=== PATIENT | female | born 1960 | race Caucasian/White ===

== ENCOUNTER 2017-03-05 12:59 | Emergency (ER) | payer BC ==
[~2017-03-05] VITALS: Ht 170.2 cm; Wt 86.2 kg
[~2017-03-05 12:59] MED LIST: MULTI-VITAMIN1 EACH PO; MULTIVITAMIN; PANTOPRAZOLE SO40 MG PO; PREVACID30 M2 PO; Z.1.FISH OIL 1,2001 PO
[2017-03-05] MEDS ORDERED: ALBUTEROL SULF 0.083% NEB SOLN 3 ML NEB NEB STA (13:23)
[2017-03-05] MEDS ORDERED: IPRATROPIUM BROMIDE 0.02% 2.5 ML NEB NEB STA (13:23)
[2017-03-05] MEDS ORDERED: BENZONATATE 100 MG CAP PO PRN (13:30)
[2017-03-05] MEDS ORDERED: FAMOTIDINE 20 MG TAB PO ONE (13:30)
[2017-03-05] MEDS ORDERED: DEXAMETHASONE SOD PHOS 10 MG/1 ML VIAL IV ONE (13:30)
--- NOTE | 2017-03-05 17:19 | Diagnostic Imaging Report ---
PROCEDURE: Frontal and lateral views of the chest. COMPARISON: None. INDICATIONS: PNEUMONIA FINDINGS: Lines/tubes: None. Lungs: The lungs are well inflated. Very mild peribronchial cuffing. There is no evidence of pneumonia or pulmonary edema. Pleura: There is no pleural effusion or pneumothorax. Heart and mediastinum: The heart and the mediastinum are normal. Bones: No acute bony abnormality. Right upper quadrant cholecystectomy clips. Left upper quadrant surgical clips. IMPRESSION: Very mild peribronchial cuffing, which may represent mild reactive airway versus viral etiology. Dictated by: Zain Ac M.D. on 03/05/2017 at 17:28 Electronically approved by: Zain Ac M.D. on 03/05/2017 at 17:28
== END 2017-03-05 14:40 | disposition home or self-care (01) ==
LOC: ER 12:59
DX: T78.40XA Allergy, unspecified, initial encounter (principal); L50.9 Urticaria, unspecified; R05 Cough
CPT/HCPCS: 71020; 99283; J1100

== ENCOUNTER → 2018-07-10 | Day surgery (SDC) | payer BC ==
[2018-07-09 13:39] LABS: BASOPHILS % 0.5 % (0.0-1.0); EOSINOPHILS # (AUTO) 0.3 (0.0-0.4); HEMATOCRIT 39.1 % (34.2-44.1); HEMOGLOBIN 13.7 g/dL (12.0-16.0); LYMPHOCYTES # (AUTO) 2.3 (1.0-3.2); LYMPHOCYTES % 29.1 % (18.0-39.1); MEAN CORPUSCULAR HEMOGLOBIN 31.4 pg (28-32); MEAN CORPUSCULAR VOLUME 89.7 fL (81-99); MONOCYTES # (AUTO) 0.5 (0.2-0.8); MONOCYTES % 6.2 % (4.4-11.3); NEUTROPHILS # (AUTO) 4.6 (2.1-6.9); NEUTROPHILS % 59.7 % (38.7-80.0); PLATELET COUNT 269 x10e3/uL (140-360); RED BLOOD COUNT 4.36 x10e6/uL (3.6-5.1); RED CELL DISTRIBUTION WIDTH 12.2 % (11.7-14.4)
[2018-07-09 14:01] LABS: ANION GAP 11.8 mmol/L (8-16); BLOOD UREA NITROGEN 8 mg/dL (7-26); BUN/CREATININE RATIO 11 (6-25); CARBON DIOXIDE 26 mmol/L (22-29); CHLORIDE 105 mmol/L (98-107); CREATININE, SERUM 0.74 mg/dL (0.57-1.11); EST GLOMERULAR FILTRATION RATE > 60 ML/MIN (60-); GLUCOSE 93 mg/dL (74-118); POTASSIUM 3.8 mmol/L (3.5-5.1); SODIUM 139 mmol/L (136-145)
[~2018-07-10] MED LIST changes: +FENTANYL CITRATE/PF 100MCG/2 ML INJ ONE; +LIDOCAINE HCL 2% LOCAL INJ 5 ML SDV VIAL INJ ONE; +MIDAZOLAM HCL 2 MG/2 ML VIAL ONE; +PLAVIX75 MG PO; +PROPOFOL IV EMULSION 10 MG/ML 50 ML VIAL ONE
--- OUTSIDE RECORDS SUMMARY | 2018-07-10 06:17 | XMS REPORT ---
[facility] Address Unknown Phone Unavailable Care Team Providers Care Income Tax Analyst Name Role Phone Zahida COTTER Unavailable Unavailable Problems This patient has no known problems. Allergies, Adverse Reactions, Alerts This patient has no known allergies or adverse reactions. Medications This patient has no known medications. Results Test Description Test Time Test Comments Text Results Atomic Results Result Comments CHEST 2 VIEWS [place] [address] Patient Name: CLARENCE HALEY MR #: [id number] : 1960 Age/Sex: 56/F Req #: [id number] Adm Physician: Ordered by: NAI WOOD MANAGER [employer] Report #: [id number] Location: ER Room/Bed: Procedure: [id number] DX/CHEST 2 VIEWS Exam Date: 03/05/17 Exam Time: 1330 REPORT STATUS: Signed PROCEDURE: Frontal and lateral views of the chest. COMPARISON: None. INDICATIONS: PNEUMONIA FINDINGS: Lines/tubes: None. Lungs: The lungs are well inflated. Very mild peribronchial cuffing. There is no evidence of pneumonia or pulmonary edema. Pleura: There is no pleural effusion or pneumothorax. Heart and mediastinum: The heart and the mediastinum are normal. Bones: No acute bony abnormality. Right upper quadrant cholecystectomy clips. Left upper quadrant surgical clips. IMPRESSION: Very mild peribronchial cuffing, which may represent mild reactive airway versus viral etiology. Dictated by: Savanah Ac M.D. on 03/05/2017 at 17:28 Electronically approved by: Savanah Ac M.D. on 03/05/2017 at 17:28 Dictated By: SAVANAH AC MD 28 Transcribed By: BRITTNEY on 03/05/171728 COPY TO: NAI WOOD NP
[2018-07-10 09:10] VITALS: BP 120/74
== END | disposition home or self-care (01) ==
LOC: OR 06:12
PROVIDERS: ATTEND Surgery
DX: K22.2 Esophageal obstruction (principal); C16.0 Malignant neoplasm of cardia; K25.9 Gastric ulcer, unspecified as acute or chronic, without hemorrhage or perforation; K21.0 Gastro-esophageal reflux disease with esophagitis; K22.70 Barrett's esophagus without dysplasia; Z88.1 Allergy status to other antibiotic agents; Z88.0 Allergy status to penicillin; Z01.810 Encounter for preprocedural cardiovascular examination; Z98.890 Other specified postprocedural states; Z87.891 Personal history of nicotine dependence
CPT/HCPCS: 36415; 43239; 43249; 80048; 85025; 88305; 88312; 93005; J2001; J2250; J2704; 43450

== ENCOUNTER 2018-09-06 18:20 | Emergency (ER) | payer BC ==
[~2018-09-06] VITALS: Ht 170.2 cm; Wt 86.2 kg
[~2018-09-06 18:20] MED LIST changes: -FENTANYL CITRATE/PF 100MCG/2 ML INJ ONE; -LIDOCAINE HCL 2% LOCAL INJ 5 ML SDV VIAL INJ ONE; -MIDAZOLAM HCL 2 MG/2 ML VIAL ONE; -PROPOFOL IV EMULSION 10 MG/ML 50 ML VIAL ONE
--- OUTSIDE RECORDS SUMMARY | 2018-09-06 18:23 | XMS REPORT | Clinical Summary ---
Author Author [facility] Address Unknown Phone Unavailable Care Team Providers Care Registered Physical Therapist Name Role Phone Jasper Mast Unavailable Allergies Comments Active Allergy Reactions Severity Noted Date welps Ciprofloxacin Swelling, 07/28/2018 Other (See Comments) welps Penicillins Swelling, 07/28/2018 Other (See Comments) Medications End Date Status Medication Sig Dispensed Refills Start Date Active pantoprazole (PROTONIX) Take 20 mg by 0 20 MG tablet mouth daily. 09/10/2018 Active acetaminophen 650 mg/20.3 20.3 mLs (650 812 mL 0 mL Soln mg total) by 9 Feed Tube route every 6 (six) hours for 10 days. 09/10/2018 Active gabapentin (NEURONTIN) Take 2 mLs 60 mL 0 250 mg/5 mL solution (100 mg 9 total) by mouth every 8 (eight) hours for 10 days. 09/30/2018 Active lidocaine (LIDODERM) 5 % Place 1 patch 30 patch 0 patch onto the skin 9 daily for 30 days Remove & Discard patch within 12 hours or as directed by . 09/10/2018 Active traMADol (ULTRAM) 50 mg Take 1 tablet 30 tablet 0 tablet (50 mg total) 9 by mouth every 6 (six) hours as needed for up to 10 days. Max Daily Amount: 200 mg Active Problems Problem Noted Date Esophageal adenoca s/p FB, EGD with pyloric balloon dil, robotic take down 08/25/2018 of prior fundoplication, Juventino Marcus esophagectomy (laparoscopic, thoracoscopic), feeding J tube 08/25/18 Encounters Care Team Description Date Type Specialty Jason Prado MD ROBOTIC LAPAROSCOPY,ESOPHAGECTOMY 08/25/2018 Surgery Jorden Lowe, AA 08/25/2018 Anesthesia Event Jason Prado MD Esophageal adenocarcinoma (HCC); Acute respiratory insufficiency, postoperative 08/25/2018 Hospital Intensive Care - Encounter 08/31/2018 Jason Prado MD 08/21/2018 Hospital Encounter Jason Prado MD 08/21/2018 Hospital Cardiology Encounter Jason Prado MD 08/21/2018 Hospital Pre-Admission Testing Encounter 08/21/2018 Orders Only General Internal Medicine Link, Wilfredo Hagen MD 08/21/2018 Outside Orders Resource, [facility] Phone 08/11/2018 Hospital Pre-Admission Testing Encounter Jackelin Larsen CRNA 08/01/2018 Anesthesia Event Tony Pickard MD UPPER ENDOSCOPY,FNA W/ULTRASOUND 08/01/2018 Surgery Tony Pickard MD 08/01/2018 Hospital Encounter Resource, [facility] Phone 07/28/2018 Hospital Pre-Admission Testing Encounter after 09/05/2017 Social History Date Tobacco Use Types Packs/Day Years Used Quit: 2000 Former Smoker 0.1 15 Smokeless Tobacco: Never Used Alcohol Use Drinks/Week oz/Week Comments Yes rarely Alcohol Habits Answer Date Recorded How often do you have a drink containing alcohol? Never 08/01/2018 How many drinks containing alcohol do you have on Not asked a typical day when you are drinking? How often do you have six or more drinks on one Not asked occasion? Sex Assigned at Date Recorded Not on file Industry Job Start Date Occupation Not on file Not on file Not on file Travel End Travel History Travel Start No recent travel history available. Last Filed Vital Signs Time Taken Vital Sign Reading 08/31/2018 10:41 AM CDT Blood Pressure 117/74 08/31/2018 10:41 AM CDT Pulse 94 08/31/2018 8:45 AM CDT Temperature 36.4 C (97.6 F) 08/31/2018 10:41 AM CDT Respiratory Rate 23 08/31/2018 10:41 AM CDT Oxygen Saturation 98% 08/29/2018 12:00 AM CDT Inhaled Oxygen 2% Concentration 08/31/2018 6:00 AM CDT Weight 65.6 kg (144 lb 10 oz) 08/25/2018 5:50 AM CDT Height 170.2 cm (5' 7") 08/31/2018 6:00 AM CDT Body Mass Index 22.65 Plan of Treatment Not on file Procedures Comments Procedure Name Priority Date/Time Associated Diagnosis RHYTHM STRIP - SCAN 09/01/2018 1:30 PM CDT POCT-GLUCOSE METER Routine 08/31/2018 5:49 AM CDT CBC W/PLT COUNT & AUTO Routine 08/31/2018 DIFFERENTIAL 4:41 AM CDT PHOSPHORUS Routine 08/31/2018 4:41 AM CDT MAGNESIUM Routine 08/31/2018 4:41 AM CDT CBC W/PLT COUNT & AUTO Routine 08/31/2018 DIFFERENTIAL 4:41 AM CDT BASIC METABOLIC PANEL (7) Routine 08/31/2018 4:41 AM CDT XR CHEST 1 VIEW Routine 08/31/2018 PORTABLE/BEDSIDE 3:45 AM CDT POCT-GLUCOSE METER Routine 08/31/2018 12:02 AM CDT POCT-GLUCOSE METER Routine 08/30/2018 5:35 PM CDT POCT-GLUCOSE METER Routine 08/30/2018 11:33 AM CDT POCT-GLUCOSE METER Routine 08/30/2018 5:52 AM CDT CBC W/PLT COUNT & AUTO Routine 08/30/2018 DIFFERENTIAL 4:38 AM CDT PHOSPHORUS Routine 08/30/2018 4:38 AM CDT MAGNESIUM Routine 08/30/2018 4:38 AM CDT CBC W/PLT COUNT & AUTO Routine 08/30/2018 DIFFERENTIAL 4:38 AM CDT BASIC METABOLIC PANEL (7) Routine 08/30/2018 4:38 AM CDT XR CHEST 1 VIEW Routine 08/30/2018 PORTABLE/BEDSIDE 3:04 AM CDT POCT-GLUCOSE METER Routine 08/29/2018 11:54 PM CDT POCT-GLUCOSE METER Routine 08/29/2018 1:00 PM CDT FL ESOPHAGUS PHARNYX Routine 08/29/2018 AND/OR CERVICAL 10:53 AM CDT POCT-GLUCOSE METER Routine 08/29/2018 6:06 AM CDT CBC W/PLT COUNT & AUTO Routine 08/29/2018 DIFFERENTIAL 4:57 AM CDT PHOSPHORUS Routine 08/29/2018 4:57 AM CDT MAGNESIUM Routine 08/29/2018 4:57 AM CDT CBC W/PLT COUNT & AUTO Routine 08/29/2018 DIFFERENTIAL 4:57 AM CDT BASIC METABOLIC PANEL (7) Routine 08/29/2018 4:57 AM CDT XR CHEST 1 VIEW Routine 08/29/2018 PORTABLE/BEDSIDE 3:17 AM CDT POCT-GLUCOSE METER Routine 08/28/2018 11:03 PM CDT POCT-GLUCOSE METER Routine 08/28/2018 5:56 PM CDT INTRAOPERATIVE PATH 08/28/2018 REPORT - SCAN 3:01 PM CDT PHOSPHORUS Routine 08/28/2018 12:46 PM CDT POCT-GLUCOSE METER Routine 08/28/2018 12:10 PM CDT XR CHEST 1 VIEW Routine 08/28/2018 PORTABLE/BEDSIDE 12:06 PM CDT CBC W/PLT COUNT & AUTO Routine 08/28/2018 DIFFERENTIAL 2:47 AM CDT PHOSPHORUS Routine 08/28/2018 2:47 AM CDT MAGNESIUM Routine 08/28/2018 2:47 AM CDT CBC W/PLT COUNT & AUTO Routine 08/28/2018 DIFFERENTIAL 2:47 AM CDT BASIC METABOLIC PANEL (7) Routine 08/28/2018 2:47 AM CDT XR CHEST 1 VIEW Routine 08/28/2018 PORTABLE/BEDSIDE 2:46 AM CDT POCT-GLUCOSE METER Routine 08/28/2018 12:06 AM CDT POCT-GLUCOSE METER Routine 08/27/2018 5:58 PM CDT POCT-GLUCOSE METER Routine 08/27/2018 12:10 PM CDT POCT-GLUCOSE METER Routine 08/27/2018 6:40 AM CDT XR CHEST 1 VIEW Routine 08/27/2018 PORTABLE/BEDSIDE 5:48 AM CDT CBC W/PLT COUNT & AUTO Routine 08/27/2018 DIFFERENTIAL 5:23 AM CDT CBC W/PLT COUNT & AUTO Routine 08/27/2018 DIFFERENTIAL 5:23 AM CDT PHOSPHORUS Routine 08/27/2018 5:23 AM CDT MAGNESIUM Routine 08/27/2018 5:23 AM CDT BASIC METABOLIC PANEL (7) Routine 08/27/2018 5:23 AM CDT MAGNESIUM Routine 08/27/2018 12:06 AM CDT POTASSIUM Routine 08/27/2018 12:06 AM CDT POCT-GLUCOSE METER Routine 08/26/2018 11:03 PM CDT TRANSFUSION SERVICE 08/26/2018 REPORT - SCAN 6:02 PM CDT POCT-GLUCOSE METER Routine 08/26/2018 5:27 PM CDT CBC W/PLT COUNT & AUTO Routine 08/26/2018 DIFFERENTIAL 4:21 PM CDT CBC W/PLT COUNT & AUTO Routine 08/26/2018 DIFFERENTIAL 4:21 PM CDT PHOSPHORUS Routine 08/26/2018 4:21 PM CDT MAGNESIUM Routine 08/26/2018 4:21 PM CDT BASIC METABOLIC PANEL (7) Routine 08/26/2018 4:21 PM CDT BLOOD GAS, ARTERIAL Routine 08/26/2018 4:21 PM CDT POCT-GLUCOSE METER Routine 08/26/2018 11:27 AM CDT XR CHEST 1 VIEW Routine 08/26/2018 PORTABLE/BEDSIDE 4:30 AM CDT CBC W/PLT COUNT & AUTO Routine 08/26/2018 DIFFERENTIAL 3:10 AM CDT CBC W/PLT COUNT & AUTO Routine 08/26/2018 DIFFERENTIAL 3:10 AM CDT PHOSPHORUS Routine 08/26/2018 3:10 AM CDT MAGNESIUM Routine 08/26/2018 3:10 AM CDT BASIC METABOLIC PANEL (7) Routine 08/26/2018 3:10 AM CDT BLOOD GAS, ARTERIAL Routine 08/26/2018 3:10 AM CDT XR CHEST 1 VIEW STAT 08/25/2018 PORTABLE/BEDSIDE 9:45 PM CDT BLOOD GAS, ARTERIAL Routine 08/25/2018 9:08 PM CDT CBC W/PLT COUNT & AUTO Routine 08/25/2018 DIFFERENTIAL 9:07 PM CDT APTT Routine 08/25/2018 9:07 PM CDT PROTHROMBIN TIME/INR Routine 08/25/2018 9:07 PM CDT CBC W/PLT COUNT & AUTO Routine 08/25/2018 DIFFERENTIAL 9:07 PM CDT CALCIUM, IONIZED Routine 08/25/2018 9:07 PM CDT PHOSPHORUS Routine 08/25/2018 9:07 PM CDT MAGNESIUM Routine 08/25/2018 9:07 PM CDT COMPREHENSIVE METABOLIC Routine 08/25/2018 PANEL 9:07 PM CDT HGB/HCT (H&H) - STAT LAB STAT 08/25/2018 7:25 PM CDT GLUCOSE-STAT LAB STAT 08/25/2018 7:25 PM CDT POTASSIUM-STAT LAB STAT 08/25/2018 7:25 PM CDT SODIUM NA-STAT LAB STAT 08/25/2018 7:25 PM CDT BLOOD GAS, ARTERIAL STAT 08/25/2018 7:25 PM CDT CALCIUM, IONIZED STAT 08/25/2018 7:25 PM CDT RRL CRITICAL LABS STAT 08/25/2018 (ABG,NA,K,H&H,GLUCOSE) 7:25 PM CDT HGB/HCT (H&H) - STAT LAB STAT 08/25/2018 6:14 PM CDT GLUCOSE-STAT LAB STAT 08/25/2018 6:14 PM CDT POTASSIUM-STAT LAB STAT 08/25/2018 6:14 PM CDT SODIUM NA-STAT LAB STAT 08/25/2018 6:14 PM CDT BLOOD GAS, ARTERIAL STAT 08/25/2018 6:14 PM CDT CALCIUM, IONIZED STAT 08/25/2018 6:14 PM CDT RRL CRITICAL LABS STAT 08/25/2018 (ABG,NA,K,H&H,GLUCOSE) 6:14 PM CDT HGB/HCT (H&H) - STAT LAB STAT 08/25/2018 5:07 PM CDT GLUCOSE-STAT LAB STAT 08/25/2018 5:07 PM CDT POTASSIUM-STAT LAB STAT 08/25/2018 5:07 PM CDT SODIUM NA-STAT LAB STAT 08/25/2018 5:07 PM CDT BLOOD GAS, ARTERIAL STAT 08/25/2018 5:07 PM CDT CALCIUM, IONIZED STAT 08/25/2018 5:07 PM CDT RRL CRITICAL LABS STAT 08/25/2018 (ABG,NA,K,H&H,GLUCOSE) 5:07 PM CDT HGB/HCT (H&H) - STAT LAB STAT 08/25/2018 3:01 PM CDT GLUCOSE-STAT LAB STAT 08/25/2018 3:01 PM CDT POTASSIUM-STAT LAB STAT 08/25/2018 3:01 PM CDT SODIUM NA-STAT LAB STAT 08/25/2018 3:01 PM CDT BLOOD GAS, ARTERIAL STAT 08/25/2018 3:01 PM CDT CALCIUM, IONIZED STAT 08/25/2018 3:01 PM CDT RRL CRITICAL LABS STAT 08/25/2018 (ABG,NA,K,H&H,GLUCOSE) 3:01 PM CDT HGB/HCT (H&H) - STAT LAB STAT 08/25/2018 12:58 PM CDT GLUCOSE-STAT LAB STAT 08/25/2018 12:58 PM CDT POTASSIUM-STAT LAB STAT 08/25/2018 12:58 PM CDT SODIUM NA-STAT LAB STAT 08/25/2018 12:58 PM CDT BLOOD GAS, ARTERIAL STAT 08/25/2018 12:58 PM CDT CALCIUM, IONIZED STAT 08/25/2018 12:58 PM CDT RRL CRITICAL LABS STAT 08/25/2018 (ABG,NA,K,H&H,GLUCOSE) 12:58 PM CDT TISSUE EXAM AP Routine 08/25/2018 10:58 AM CDT HGB/HCT (H&H) - STAT LAB STAT 08/25/2018 10:58 AM CDT GLUCOSE-STAT LAB STAT 08/25/2018 10:58 AM CDT POTASSIUM-STAT LAB STAT 08/25/2018 10:58 AM CDT SODIUM NA-STAT LAB STAT 08/25/2018 10:58 AM CDT BLOOD GAS, ARTERIAL STAT 08/25/2018 10:58 AM CDT RRL CRITICAL LABS STAT 08/25/2018 (ABG,NA,K,H&H,GLUCOSE) 10:58 AM CDT HGB/HCT (H&H) - STAT LAB STAT 08/25/2018 9:17 AM CDT GLUCOSE-STAT LAB STAT 08/25/2018 9:17 AM CDT POTASSIUM-STAT LAB STAT 08/25/2018 9:17 AM CDT SODIUM NA-STAT LAB STAT 08/25/2018 9:17 AM CDT BLOOD GAS, ARTERIAL STAT 08/25/2018 9:17 AM CDT CALCIUM, IONIZED STAT 08/25/2018 9:17 AM CDT RRL CRITICAL LABS STAT 08/25/2018 (ABG,NA,K,H&H,GLUCOSE) 9:17 AM CDT PROCEDURE W/ DAVINCI XI 08/25/2018 Malignant neoplasm of 8:00 AM CDT esophagus, unspecified location (HCC) Case Notes 6 HRS Special Needs (DAVINCI XI) INSERTION,JEJUNOSTOMY 08/25/2018 Malignant neoplasm of TUBE-LAPAROSCOPIC 8:00 AM CDT esophagus, unspecified location (HCC) Case Notes 6 HRS Special Needs (DAVINCI XI) FLAP,OMENTAL 08/25/2018 Malignant neoplasm of INTRA-ABDOMINAL 8:00 AM CDT esophagus, unspecified location (HCC) Case Notes 6 HRS Special Needs (DAVINCI XI) ESOPHAGOGASTRODUODENOSCOP 08/25/2018 Malignant neoplasm of Y (EGD) 8:00 AM CDT esophagus, unspecified location (HCC) Case Notes 6 HRS Special Needs (DAVINCI XI) BRONCHOSCOPY 08/25/2018 Malignant neoplasm of 8:00 AM CDT esophagus, unspecified location (HCC) Case Notes 6 HRS Special Needs (DAVINCI XI) ROBOTIC 08/25/2018 Malignant neoplasm of LAPAROSCOPY,ESOPHAGECTOMY 8:00 AM CDT esophagus, unspecified location (HCC) Case Notes 6 HRS Special Needs (DAVINCI XI) ABORH, MANUAL STAT 08/25/2018 6:38 AM CDT POCT-GLUCOSE METER Routine 08/25/2018 5:53 AM CDT TRANSFUSION SERVICE 08/22/2018 REPORT - SCAN 6:02 PM CDT XR CHEST 2 VIEWS Routine 08/21/2018 12:41 PM CDT ECG 12-LEAD Routine 08/21/2018 12:19 PM CDT Procedure Note - Interface, External Ris In - 08/21/2018 2:46 PM CDT Ventricula r Rate 60 BPM Atrial Rate 60 BPM P-R Interval 176 ms QRS Duration 70 ms Q-T Interval 400 ms QTC Calculatio n(Bazett) 400 ms P [place] 23 degrees R [place] 30 degrees T [place] 47 degrees Normal sinus rhythm Normal ECG No previous ECGs available ECG 12-LEAD Routine 08/21/2018 12:19 PM CDT CBC W/PLT COUNT & AUTO Routine 08/21/2018 DIFFERENTIAL 12:15 PM CDT PT/APTT Routine 08/21/2018 12:15 PM CDT COMPREHENSIVE METABOLIC Routine 08/21/2018 PANEL 12:15 PM CDT CBC W/PLT COUNT & AUTO Routine 08/21/2018 DIFFERENTIAL 12:15 PM CDT TYPE AND SCREEN, Routine 08/21/2018 AUTOMATED 12:14 PM CDT REPORT OF PROCEDURE - 08/01/2018 ENDOSCOPY URL 3:38 PM CDT UPPER ENDOSCOPY,FNA 08/01/2018 Malignant neoplasm of W/ULTRASOUND 2:30 PM CDT esophagus, unspecified location (HCC) Special Needs (LINEAR SCOPE) after 09/05/2017 Results * RHYTHM STRIP - SCAN (09/01/2018 1:30 PM CDT) Narrative Performed At * POC-Glucose meter (08/31/2018 5:49 AM CDT) Only the most recent of 19 results within the time period is included. POC-Glucose Meter 142 (H)Comment: TESTED AT 70 - 110 mg/dL [facility] [id number] [facility] [id number] Specimen Blood Performing Organization Address City/State/Zipcode Phone Number [place] [phone] [place] [address] [facility] * CBC with platelet count + automated diff (08/31/2018 4:41 AM CDT) Only the most recent of 9 results within the time period is included. WBC 4.9 3.5 - 10.5 K/L [facility] RBC 3.15 (L) 3.93 - 5.22 M/L [facility] Hemoglobin 9.6 (L) 11.2 - 15.7 GM/DL [facility] Hematocrit 29.2 (L) 34.1 - 44.9 % [facility] MCV 92.7 79.4 - 94.8 fL [facility] MCH 30.5 25.6 - 32.2 pg [facility] MCHC 32.9 32.2 - 35.5 GM/DL [facility] RDW 12.4 11.7 - 14.4 % [facility] Platelets 287 150 - 450 K/CU MM [facility] MPV 9.6 9.4 - 12.3 fL [facility] nRBC 0 0 - 0 /100 WBC [facility] % Neutros 55 % [facility] % Lymphs 29 % [facility] % Monos 9 % [facility] % Eos 6 % [facility] % Baso 1 % [facility] # Neutros 2.70 1.56 - 6.13 K/L [facility] # Lymphs 1.43 1.18 - 3.74 K/L [facility] # Monos 0.45 (H) 0.24 - 0.36 K/L [facility] # Eos 0.28 0.04 - 0.36 K/L [facility] # Baso 0.03 0.01 - 0.08 K/L [facility] Immature 1 0 - 1 % [facility] Granulocytes-Relative [facility] Specimen Blood Performing Organization Address City/State/Zipcode Phone Number [facility] [phone] [place] [address] [facility] * Phosphorus (08/31/2018 4:41 AM CDT) Only the most recent of 9 results within the time period is included. Phosphorus 2.8 2.3 - 4.7 mg/dL [facility] Specimen Blood Performing Organization Address City/[facility]/Zipcode Phone Number [address] [address] [facility] * Magnesium (08/31/2018 4:41 AM CDT) Only the most recent of 9 results within the time period is included. Magnesium 1.9 1.6 - 2.6 mg/dL [facility] Specimen Blood Performing Organization Address [facility] Phone Number [place] [phone] [place] [address] [facility] * Basic Metabolic Panel (08/31/2018 4:41 AM CDT) Only the most recent of 7 results within the time period is included. Sodium 140 136 - 145 meq/L [facility] Potassium 4.2 3.5 - 5.1 meq/L [facility] Chloride 109 (H) 98 - 107 meq/L [facility] CO2 26 22 - 29 meq/L [facility] BUN 11 7 - 21 mg/dL [facility] Creatinine 0.49 (L) 0.57 - 1.25 mg/dL [facility] Glucose 112 (H) 70 - 105 mg/dL [facility] Calcium 9.0 8.4 - 10.2 mg/dL [facility] EGFR 130Comment: ESTIMATED GFR IS mL/min/1.73 sq m [facility] NOT ACCURATE CREATININE [facility] CLEARANCE IN PREDICTING GLOMERULAR FILTRATION RATE. ESTIMATED GFR IS NOT APPLICABLE FOR DIALYSIS PATIENTS. Specimen Blood Performing Organization Address City/[facility]/Zipcode Phone Number [place] [phone] [place] [address] [facility] * XR chest 1 view portable / bedside (08/31/2018 3:45 AM CDT) Only the most recent of 8 results within the time period is included. Specimen Narrative Performed At FINAL REPORT [facility] RAD, CHEST, 1 VIEW, NON DEPT INDICATION: post op esophagectomy COMPARISON: Prior day's exam FINDINGS: Portable frontal view of the chest. IMPRESSION: Support Lines: Interval removal of the previously seen right IJ Montgomery-Maria Alejandra catheter. Lungs and pleura: Unchanged airspace and pleural opacities. Previously seen lucency under the right hemidiaphragm is no longer identified on the current examination. No definite pneumothorax is identified. Heart and mediastinum: Stable contours. Stable surgical changes. Additional findings: Subcutaneous emphysema over the bilateral neck and chest wall. Signed: Radha Ramos MD Report Verified Date/Time:08/31/2018 06:56:48 Procedure Note Interface, External Ris In - 08/31/2018 6:58 AM CDT FINAL REPORT RAD, CHEST, 1 VIEW, NON DEPT INDICATION: post op esophagectomy COMPARISON: Prior day's exam FINDINGS: Portable frontal view of the chest. IMPRESSION: Support Lines: Interval removal of the previously seen right IJ Montgomery-Maria Alejandra catheter. Lungs and pleura: Unchanged airspace and pleural opacities. Previously seen lucency under the right hemidiaphragm is no longer identified on the current examination. No definite pneumothorax is identified. Heart and mediastinum: Stable contours. Stable surgical changes. Additional findings: Subcutaneous emphysema over the bilateral neck and chest wall. Signed: Radha Ramos MD Report Verified Date/Time: 08/31/2018 06:56:48 Performing Organization Address City/State/Zipcode Phone Number [facility] * FL esophagus (08/29/2018 10:53 AM CDT) Specimen Narrative Performed At FINAL REPORT [facility] Gastrografin esophagogram Clinical History: s/p esophagectomy, please evaluate for leak or obstruction Discussion: Gastrografin is given to the patient to drink, without difficulties. Patient is status post esophagectomy and gastric pull-through. There is no contrast extravasation. Fluoro time:0.55 minutes Number of images obtained: 8 Impression: No contrast extravasation. Signed: Lauro Ornelas MD Report Verified Date/Time:08/29/2018 17:05:55 Reading Location: [address] Ortho Consult Reading Room Procedure Note Interface, External Ris In - 08/29/2018 5:08 PM CDT FINAL REPORT Gastrografin esophagogram Clinical History: s/p esophagectomy, please evaluate for leak or obstruction Discussion: Gastrografin is given to the patient to drink, without difficulties. Patient is status post esophagectomy and gastric pull-through. There is no contrast extravasation. Fluoro time: 0.55 minutes Number of images obtained: 8 Impression: No contrast extravasation. Signed: Lauro Ornelas MD Report Verified Date/Time: 08/29/2018 17:05:55 Reading Location: [address] Ortho Consult Reading Room Performing Organization Address City/State/Zipcode Phone Number [facility] * INTRAOPERATIVE PATH REPORT - SCAN (08/28/2018 3:01 PM CDT) Narrative Performed At * Potassium (08/27/2018 12:06 AM CDT) Potassium 3.8 3.5 - 5.1 meq/L [facility] Specimen Blood Narrative Performed At Check Serum Potassium level 2 hours after oral potassium replacement completed [facility] or 30 min after intravenous potassium replacement. [facility] Performing Organization Address City/State/Zipcode Phone Number [place] [phone] [place] [address] [facility] * TRANSFUSION SERVICE REPORT - SCAN (08/26/2018 6:02 PM CDT) Only the most recent of 2 results within the time period is included. Narrative Performed At * Blood gas, arterial (08/26/2018 4:21 PM CDT) Only the most recent of 10 results within the time period is included. pH, Arterial 7.38 7.35 - 7.45 [facility] pCO2, Arterial 44 35 - 45 mmHg [facility] pO2, Arterial 117 (H) 80 - 90 mmHg [facility] O2 Sat, Arterial 98.2 (H) 96.0 - 97.0 % [facility] HCO3, Arterial 26 21 - 29 mmol/L [facility] Base Excess, Arterial 0.2 -2.0 - 3.0 mmol/L [facility] Patient Temperature 36.5 C [facility] FIO2 60.0 % [facility] Specimen Blood, Arterial Performing Organization Address City/[facility] Phone Number [facility] [address] [place] [address] [facility] * Calcium, Ionized (08/25/2018 9:07 PM CDT) Only the most recent of 7 results within the time period is included. Calcium, Ion 1.17 1.12 - 1.27 mmol/L [facility] pH, Blood 7.32 [facility] Specimen Blood Performing Organization Address City/[facility] Phone Number [facility] [phone] [place] [address] [facility] * aPTT (08/25/2018 9:07 PM CDT) PTT 29.2 22.5 - 36.0 seconds [facility] Specimen Blood Performing Organization Address City/State/Zipcode Phone Number [facility] [address] [place] [address] [facility] * Prothrombin time/INR (08/25/2018 9:07 PM CDT) Protime 14.5 (H) 11.9 - 14.2 seconds [facility] INR 1.2 <=5.9 [facility] Specimen Blood Narrative Performed At Effective 07/09/2018: PT Reference Range Change [facility] New: 11.9-14.2Previous: 11.7-14.7 [facility] RECOMMENDED COUMADIN/WARFARIN INR THERAPY RANGES STANDARD DOSE: 2.0-3.0Includes: PROPHYLAXIS for venous thrombosis, systemic embolization; TREATMENT for venous thrombosis and/or pulmonary embolus. HIGH RISK: Target INR is 2.5-3.5 for patients wiht mechanical heart valves. Performing Organization Address City/State/Zipcode Phone Number [facility] [phone] [place] [address] [facility] * Comprehensive metabolic panel (08/25/2018 9:07 PM CDT) Only the most recent of 2 results within the time period is included. Protein, Total 5.8 (L) 6.0 - 8.3 gm/dL [facility] Albumin 3.7 3.5 - 5.0 g/dL [facility] Alkaline Phosphatase 46 40 - 150 U/L [facility] Total Bilirubin 0.7 0.2 - 1.2 mg/dL [facility] Sodium 137 136 - 145 meq/L [facility] Potassium 3.7 3.5 - 5.1 meq/L [facility] Chloride 106 98 - 107 meq/L [facility] CO2 23 22 - 29 meq/L [facility] BUN 5 (L) 7 - 21 mg/dL [facility] Creatinine 0.66 0.57 - 1.25 mg/dL [facility] Glucose 192 (H) 70 - 105 mg/dL [facility] Calcium 8.6 8.4 - 10.2 mg/dL [facility] AST 71 (H) 5 - 34 U/L [facility] ALT 72 (H) 6 - 55 U/L [facility] EGFR 92Comment: ESTIMATED GFR IS mL/min/1.73 sq m [facility] NOT ACCURATE CREATININE [facility] CLEARANCE IN PREDICTING GLOMERULAR FILTRATION RATE. ESTIMATED GFR IS NOT APPLICABLE FOR DIALYSIS PATIENTS. Specimen Blood Performing Organization Address [facility] Services[facility] Phone Number [address] * Potassium-Stat Lab (08/25/2018 7:25 PM CDT) Only the most recent of 7 results within the time period is included. Potassium 3.8 3.6 - 5.5 meq/L [facility] Specimen Blood, Arterial Performing Organization Address [facility] Phone Number [address] * Sodium Na-Stat Lab (08/25/2018 7:25 PM CDT) Only the most recent of 7 results within the time period is included. Sodium 135 135 - 148 meq/L [facility] Specimen Blood, Arterial Performing Organization Address [facility] Phone Number [address] * Glucose-Stat Lab (08/25/2018 7:25 PM CDT) Only the most recent of 7 results within the time period is included. Glucose 185 (H) 70 - 110 mg/dL [facility] Specimen Blood, Arterial Performing Organization Address [facility] Phone Number [address] * HGB/HCT (H&H)-Stat Lab (08/25/2018 7:25 PM CDT) Only the most recent of 7 results within the time period is included. Hemoglobin 10.5 (L) 12.0 - 15.0 g/dL [facility] Hematocrit 31.0 (L) 36.0 - 45.0 % [facility] Specimen Blood, Arterial Performing Organization Address [facility]/Zipcode Phone Number [facility] [address] [place] [address] MEDICAL CENTER * Tissue Exam (08/25/2018 10:58 AM CDT) Case Report Surgical Pathology [facility] Report [facility] Case: [id number] Authorizing Provider:Jason Prado MD Collected: 08/25/2018 1058 Ordering Location: [facility] Received: 08/25/2018 2288 PERIOPERATIVE SERVICES Pathologist: John Simeon MD Specimens: A) - Lymph Node, SPLENIC ARTERY LYMPH NODE TISSUE B) - Esophagus, ESOPHAGOGASTRECTOMY, PROXIMAL AND DISTAL MARGINS C) - Soft Tissue, Other, ANASTOMOTIC RINGS D) - Gastric, FINAL GASTRIC MARGIN DIAGNOSIS PART A SOFT TISSUE LABELLED " [facility] LYMPH NODE", SPLENIC ARTERY, [facility] EXCISION: BENIGN FIBROADIPOSE TISSUE. 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 THE TUMOR INVADES INTO THE MUSCULARIS PROPRIA. LYMPHOVASCULAR INVASION NOT PRESENT PERINEURAL INVASION NOT PRESENT SIXTEEN LYMPH NODES, NEGATIVE FOR CARCINOMA (0/16) SURGICAL MARGINS ARE NEGATIVE. AJCC CLASSIFICATION [id number]. SEE SYNOPTIC REPORT. PART C SOFT TISSUE, ANASTOMOTIC RINGS: SQUAMOUS AND GASTRIC MUCOSA WITHOUT SIGNIFICANT HISTOPATHOLOGIC ALTERATION. NEGATIVE FOR ADENOCARCINOMA PART D STOMACH , FINAL GASTRIC MARGIN, RESECTION: GASTRIC MUCOSA WITHOUT SIGNIFICANT HISTOPATHOLOGIC ALTERATION. NEGATIVE FOR ADENOCARCINOMA Signing Pathologist Direct Phone Line: [phone] SYNOPTIC REPORT ESOPHAGUS(Esophagus - All [facility] Specimens) [facility] SPECIMEN Procedure:Esophagogast rectomy TUMOR Tumor Site:Esophagogastric junction (EGJ) Relationship of Tumor to Esophagogastric Junction:Tumor midpoint is 2 cm or less into the proximal stomach or cardia and tumor involves the esophagogastric junction Distance of Tumor Center from Esophagogastric Junction in Centimeters (cm):0.2 Centimeters (cm) Histologic Type:Adenocarcinoma Histologic Grade:G2:Moderatel y differentiated Tumor Size:Greatest dimension in Centimeters (cm): 2 Centimeters (cm) Additional Dimension in Centimeters (cm):1.3 Centimeters (cm) Tumor Extent (Note E): Tumor Extension:Tumor invades the muscularis propria Accessory Findings: Treatment Effect:No known presurgical therapy Lymphovascular Invasion:Not identified Perineural Invasion:Not identified MARGINS Margins: Proximal Margin:Uninvolved by invasive carcinoma Status of Dysplasia at Proximal Margin:Uninvolved by dysplasia Distal Margin:Uninvolved by invasive carcinoma Status of Dysplasia at Distal Margin:Uninvolved by dysplasia Radial Margin:Uninvolved by invasive carcinoma LYMPH NODES Number of Lymph Nodes Involved:0 Number of Lymph Nodes Examined:16 PATHOLOGIC STAGE CLASSIFICATION (pTNM, AJCC 8th Edition) Primary Tumor (pT):pT2 Regional Lymph Nodes (pN):pN0 CPT Code(s) 88345, 94064, 32197S1, 85619, [facility] [id number] [facility] CLINICAL HISTORY ADENOCARCINOMA [facility] SPECIMEN SOURCE B. Esophagogastrectomy, [facility] proximal and distal margins [facility] GROSS DESCRIPTION All parts received labelled [facility] with the patients name, date [facility] of , and medical record number. Part A. The specimen is received in formalin labeled "lymph node" and consists of two portions of ross-pink fibrotic soft tissues. There is 1 x 1 x 1 cm possible lymph node identified in the first piece. The first piece is bisected and submitted in cassette A1. There is no lymph node identified in the second piece. The second piece is bisected and submitted entirely in A2. Part B: The specimen is received fresh labeled "esophagus" and consists of a 21 x 3 cm in diameter esophagus with 2 cm open proximal esophagus margin and 20 cm stapled distal gastric margin. The adventitia is ross-brown without any lesion. On opening, the esophagus displays 2 x 1.3 cm ross-pink exophytic polypoid area which is centered at the proximal stomach but involves the gastroesophageal junction and is 5.5 cm from the proximal margin and 3.5 cm from the closest distal margin. The lesion midpoint is approximately grossly 0.2 cm from the gastroesophageal junction. The cut surface through the mass displays ross-white firm and fibrotic mass which involves the mucosa but not invades the muscularis propria,grossely. The specimen is submitted as follows: Ink code: black,the adventitia underneath the GE junction; B6-B16, GE junction entirely submitted to include the mass in cassette B11-B15. B16, premium representative section from uninvolved esophagus; B17, premium representative section from uninvolved stomach; B18, four possible lymph nodes; B19, three possible lymph nodes; B20, three possible lymph nodes. B21-B25: additional section from the fat surrounding the specimen with possible lymph nodes. Part C. The specimen is received in formalin labeled "soft tissue, other" and consists of two pieces of soft tissue with mucosal lining. The first piece is serially sectioned and submitted in cassette C1. The rest is submitted entirely in cassette C2. Office Machine Punch Operator sections are submitted in cassette C1-C2. Part D. The specimen is received in saline labeled "gastric" and consists of a 7 x 4 x 1.5 cm partial gastrectomy with 5 cm stapled margin. The serosa is ross-pink, smooth and glistening. Opening the gastric mucosa is unremarkable. There is no mass or lesion identified grossly. Section code: D1 stapled margin en face; D2, opened margin en face; D3 and D4, premium representative sections from the specimen. WA/plB. INTRAOPERATIVE FSB1, PROXIMAL MARGIN EN FACE, [facility] CONSULTATION NEGATIVE FOR CARCINOMA [facility] FSB2 TO FSB5, DISTAL MARGIN EN FACE, NEGATIVE FOR CARCINOMA Reported by Dr. Simeon on August 26 at 6:01 p.m. Specimen Tissue Tissue - Esophageal structure (body structure) Tissue - Soft tissue (navigational concept) Tissue - Esophageal and/or gastric structures (body structure) Performing Organization Address City/[facility]/Zipcode Phone Number [place] [phone] [place] [address] * ABORH, manual (08/25/2018 6:38 AM CDT) ABO Grouping O [facility] Rh Factor NEG [facility] Specimen Blood Performing Organization Address City/[facility]/[place] [address] [facility] * XR chest 2 views (08/21/2018 12:41 PM CDT) Specimen Narrative Performed At FINAL REPORT GE RIS TECHNIQUE: Frontal and lateral views of the chest. INDICATION: Esophageal Malignancy. COMPARISON: None. FINDINGS: LINES/TUBES: None. LUNGS: Questionable right medial lower lobe 1.3 cm nodule. No consolidation or pulmonary edema. PLEURA: No pleural effusion or pneumothorax. HEART AND MEDIASTINUM: The cardiomediastinal silhouette is within normal limits. SOFT TISSUES AND BONES: Surgical clips in the upper abdomen.. IMPRESSION: There is a questionable right medial lower lobe 1.3 cm nodule. This could be overlapping structures. However, a chest CT with contrast is recommended for further evaluation. Signed: Oswald Paez MD Report Verified Date/Time:08/21/2018 13:53:49 Reading Location: [address] Radiology Reading Room Procedure Note Interface, External Ris In - 08/21/2018 1:56 PM CDT FINAL REPORT TECHNIQUE: Frontal and lateral views of the chest. INDICATION: Esophageal Malignancy. COMPARISON: None. FINDINGS: LINES/TUBES: None. LUNGS: Questionable right medial lower lobe 1.3 cm nodule. No consolidation or pulmonary edema. PLEURA: No pleural effusion or pneumothorax. HEART AND MEDIASTINUM: The cardiomediastinal silhouette is within normal limits. SOFT TISSUES AND BONES: Surgical clips in the upper abdomen.. IMPRESSION: There is a questionable right medial lower lobe 1.3 cm nodule. This could be overlapping structures. However, a chest CT with contrast is recommended for further evaluation. Signed: Oswald Paez MD Report Verified Date/Time: 08/21/2018 13:53:49 Reading Location: [address] Radiology Reading Room Performing Organization Address City/State/Zipcode Phone Number GE RIS * ECG 12 lead (08/21/2018 12:19 PM CDT) Specimen Narrative Performed At Ventricular Rate 60 BPM GE MUSE Atrial Rate 60 BPM P-R Interval 176 ms QRS Duration 70 ms Q-T Interval 400 ms QTC Calculation(Bazett) 400 ms P [place] 23 degrees R [place] 30 degrees T [place] 47 degrees Normal sinus rhythm Normal ECG No previous ECGs available Confirmed by Marty WILLS BASANT ([id number]) on 08/22/2018 8:37:01 AM Procedure Note Interface, External Ris In - 08/22/2018 8:37 AM CDT Ventricular Rate 60 BPM Atrial Rate 60 BPM P-R Interval 176 ms QRS Duration 70 ms Q-T Interval 400 ms QTC Calculation(Bazett) 400 ms P [place] 23 degrees R [place] 30 degrees T [place] 47 degrees Normal sinus rhythm Normal ECG No previous ECGs available Confirmed by Marty WILLS BASANT ([id number]) on 08/22/2018 8:37:01 AM Performing Organization Address [facility] Phone Number GE MUSE * PT/aPTT (08/21/2018 12:15 PM CDT) Protime 12.7 11.9 - 14.2 seconds [facility] INR 1.0 <=5.9 [facility] PTT 28.9 22.5 - 36.0 seconds [facility] Specimen Blood Narrative Performed At Effective 07/09/2018: PT Reference Range Change [facility] New: 11.9-14.2Previous: 11.7-14.7 [facility] RECOMMENDED COUMADIN/WARFARIN INR THERAPY RANGES STANDARD DOSE: 2.0-3.0Includes: PROPHYLAXIS for venous thrombosis, systemic embolization; TREATMENT for venous thrombosis and/or pulmonary embolus. HIGH RISK: Target INR is 2.5-3.5 for patients wiht mechanical heart valves. Performing Organization Address [facility] Phone Number [place] [phone] * Type and screen, automated (08/21/2018 12:14 PM CDT) ABO/RH AUTOMATED (BEAKER) O NEGATIVE [facility] Ab Scrn NEGATIVE [facility] Specimen Blood Performing Organization Address [facility] Services[facility] Phone Number [place] [phone] * REPORT OF PROCEDURE - ENDOSCOPY URL (08/01/2018 3:38 PM CDT) Narrative Performed At after 09/05/2017 Insurance Payer Benefit Subscriber ID Type Phone Address Plan / Group BLUE CROSS/BLUE SHIELD BCBS PPO xxxxxxxxxxxx PPO [phone] [address] [place] [address] CHOICE Advance Directives Patient has advance care planning documents, and code status on file. For more i nformation, please contact: [facility] [address] [place] [address] Date Inactivated Comments Code Status Date Activated 08/31/2018 8:14 PM Full Code 08/25/2018 6:15 AM This code status was determined by: Patient
[2018-09-06 19:26] VITALS: BP 117/89
== END 2018-09-06 19:37 | disposition home or self-care (01) ==
LOC: ER 18:20
DX: Z43.4 Encounter for attention to other artificial openings of digestive tract (principal); C15.9 Malignant neoplasm of esophagus, unspecified
CPT/HCPCS: 99282

== ENCOUNTER → 2018-11-24 | Outpatient (CLI) | payer BC ==
[~2018-11-24] MED LIST changes: +IOPAMIDOL 370 MG/ML 200 ML INFUS..BTL INJ ONE; +SODIUM CHLORIDE 0.9% 50ML 50 ML ONE
--- NOTE | 2018-11-24 16:28 | Diagnostic Imaging Report ---
EXAMINATION: CT of the chest, abdomen and pelvis with contrast. TECHNIQUE: Spiral CT images of the chest, abdomen and pelvis were performed from the lung apices to the lesser trochanters after the intravenous administration of 100 cc of Isovue 370 and the oral administration of water. Coronal and sagittal reformatted images were obtained. 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 History of thyroid nodule DISCUSSION: CHEST: LINES/TUBES: None. LUNGS AND AIRWAYS: No pulmonary nodules, masses or consolidation. Minimal atelectatic changes in the medial aspect of the right lower lobe adjacent to the gastric pull-up (for example series 4, image 37),, consistent with expected postoperative changes. Minimal right basal dependent atelectasis. Airways are clear, without endobronchial lesions. PLEURA: The pleural spaces are clear. No effusion or pneumothorax. HEART AND MEDIASTINUM: Ill-defined 0.9 cm hypodense lesion in the left thyroid lobe (series 2, image 6 and coronal image 43). Heart size is normal. No pericardial effusion. Aorta is nonaneurysmal. Main pulmonary artery is normal in caliber. Postoperative changes of esophagectomy with gastric pull-up and expected anastomotic sutures. No focal mass or enhancing soft tissue is identified.. LYMPH NODES: No mediastinal, hilar, axillary or retrocrural lymph nodes BONES AND SOFT TISSUES: No bony destructive lesions. No soft tissue abnormalities. No focal breast masses are identified. ABDOMEN/PELVIS: HEPATOBILIARY: Mild decreased attenuation of the hepatic parenchyma compared to the spleen, with mild fatty infiltration. Wedge-shaped hypodense lesion adjacent to the falciform ligament likely reflects focal fatty infiltration (series 2, image 61). No other focal hepatic lesions. No intra or extrahepatic biliary ductal dilation. GALLBLADDER: Cholecystectomy clips. No wall thickening. SPLEEN: No splenomegaly. PANCREAS: No focal masses or ductal dilatation. ADRENALS: No adrenal nodules. KIDNEYS/URETERS: No hydronephrosis, stones, or solid mass lesions. PELVIC ORGANS/BLADDER: Bladder and uterus are unremarkable. No adnexal masses. PERITONEUM/RETROPERITONEUM: No free air or fluid. LYMPH NODES: No intra-abdominal,retroperitoneal, pelvic or inguinal lymphadenopathy. VESSELS: The celiac trunk,superior and inferior mesenteric and bilateral renal arteries are patent The portal, superior mesenteric and splenic veins are patent. Atherosclerotic calcification of the distal abdominal aorta and bilateral iliac vessels. GI TRACT: No bowel dilation or evidence of obstruction. Appendix is well identified and normal in caliber. No pericolonic inflammatory changes. Scattered diverticula are again noted in the distal descending and sigmoid colon, without diverticulitis. BONES AND SOFT TISSUES: No aggressive lytic or focal sclerotic lesions. Soft tissues are grossly unremarkable. IMPRESSION: 1. Postoperative changes of esophagectomy with gastric pull-up, without evidence of residual, recurrent or metastatic disease in the chest, abdomen or pelvis. 2. Ill-defined 0.9 cm hypodense lesion in the left thyroid lobe, which likely represents a thyroid nodule. Patient gives history of prior thyroid nodule for several years. Dedicated thyroid ultrasound would be helpful for further evaluation, if clinically indicated. 3. Mild hepatic steatosis.. Signed by: Dr. Nelson Pereira M.D. on 11/24/2018 4:24 PM
== END ==
LOC: CT 07:49
PROVIDERS: ATTEND Surgery
DX: C15.3 Malignant neoplasm of upper third of esophagus (principal)
CPT/HCPCS: 71260; 74177; Q9967

== ENCOUNTER → 2018-12-11 | Outpatient (CLI) | payer BC ==
[~2018-12-11] MED LIST changes: -IOPAMIDOL 370 MG/ML 200 ML INFUS..BTL INJ ONE; -SODIUM CHLORIDE 0.9% 50ML 50 ML ONE
== END ==
LOC: MAMMO 07:56
PROVIDERS: ATTEND Obstetrics & Gynecology
DX: Z12.31 Encounter for screening mammogram for malignant neoplasm of breast (principal)
CPT/HCPCS: 77067

== ENCOUNTER → 2018-12-26 | Outpatient (CLI) | payer BC ==
--- NOTE | 2018-12-29 09:11 | Diagnostic Imaging Report ---
#[id number] - MGDXLT #UNILATERAL LEFT DIGITAL DIAGNOSTIC MAMMOGRAM WITH SPOT COMPRESSION: 12/26/2018 Comparison is made to exams dated: 12/11/2018 mammogram and 07/03/2012 mammogram - [facility]. There are scattered fibroglandular elements in the left breast. The asymmetry previously seen on the screening mammogram in the left breast anterior depth inferior region seen on the mediolateral oblique view only presses out on compression views and likely represents superimposed fibroglandular tissue. No other significant masses or calcifications are seen in the breast. IMPRESSION: BENIGN There is no mammographic evidence of malignancy. A 1 year screening mammogram is recommended. The patient will be notified by letter of the results. GHADA BRICENO M.D. kw/:12/26/2018 14:55:02 Manager Fund: Jael MARQUIS)(Criselda), [facility] letter sent: Normal Exam Mammogram BI-RADS: 2 Benign
--- NOTE | 2018-12-29 09:11 | Diagnostic Imaging Report ---
#[id number] - USBRELIMLT ULTRASOUND OF THE LEFT BREAST : 12/26/2018 Comparison is made to exams dated: 12/26/2018 mammogram and 12/11/2018 mammogram - [facility]. Color flow and real-time ultrasound were performed on the left breast. Villarreal scale images of the real-time examination were reviewed. IMPRESSION: NEGATIVE There is no sonographic evidence of malignancy. A 1 year screening mammogram is recommended. GHADA russell/armen:12/26/2018 14:55:49 Seam Rubbing Machine Operator: Agueda Horton [facility], [facility] letter sent: Normal Exam Ultrasound BI-RADS: 1 Negative
== END ==
LOC: MAMMO 08:48
PROVIDERS: ATTEND Obstetrics & Gynecology
DX: N64.89 Other specified disorders of breast (principal)

== ENCOUNTER → 2019-08-17 | Outpatient (CLI) | payer BC ==
[~2019-08-17] MED LIST changes: +IOPAMIDOL 370 MG/ML 200 ML INFUS..BTL INJ ONE; +SODIUM CHLORIDE 0.9% 50ML 50 ML ONE
== END ==
LOC: CT 08-12 08:05
PROVIDERS: ATTEND Surgery
DX: C15.9 Malignant neoplasm of esophagus, unspecified (principal)
CPT/HCPCS: 71260; 74177; Q9967

== ENCOUNTER → 2019-12-16 | Day surgery (SDC) | payer BC, OTHER ==
[2019-12-11 09:01] LABS: BASOPHILS # (AUTO) 0.1 (0.0-0.1); BASOPHILS % 1.1 % (0.0-1.0); EOSINOPHILS # (AUTO) 0.3 (0.0-0.4); EOSINOPHILS % 5.8 % (0.0-6.0); HEMATOCRIT 38.6 % (34.2-44.1); HEMOGLOBIN 12.5 g/dL (12.0-16.0); LYMPHOCYTES # (AUTO) 1.4 (1.0-3.2); LYMPHOCYTES % 30.2 % (18.0-39.1); MEAN CORPUSCULAR HEMOGLOBIN 29.5 pg (28-32); MEAN CORPUSCULAR HGB CONC 32.4 g/dL (31-35); MONOCYTES # (AUTO) 0.4 (0.2-0.8); MONOCYTES % 8.6 % (4.4-11.3); NEUTROPHILS # (AUTO) 2.5 (2.1-6.9); NEUTROPHILS % 54.1 % (38.7-80.0); PLATELET COUNT 288 x10e3/uL (140-360); RED BLOOD COUNT 4.24 x10e6/uL (3.6-5.1); RED CELL DISTRIBUTION WIDTH 13.4 % (11.7-14.4)
[2019-12-11 09:45] LABS: ANION GAP 13.2 mmol/L (8-16); BLOOD UREA NITROGEN < 5 mg/dL (7-26); CALCIUM 9.4 mg/dL (8.4-10.2); CARBON DIOXIDE 28 mmol/L (22-29); CHLORIDE 105 mmol/L (98-107); CREATININE, SERUM 0.69 mg/dL (0.57-1.11); EST GLOMERULAR FILTRATION RATE > 60 ML/MIN (60-); GLUCOSE 104 mg/dL (74-118); POTASSIUM 4.2 mmol/L (3.5-5.1); SODIUM 142 mmol/L (136-145)
[2019-12-11 09:52] LABS: BUN/CREATININE RATIO 7 (6-25)
[~2019-12-16] MED LIST changes: -IOPAMIDOL 370 MG/ML 200 ML INFUS..BTL INJ ONE; +LIDOCAINE HCL 2% LOCAL INJ 5 ML SDV VIAL INJ ONE; +PROPOFOL IV EMULSION 10 MG/ML 20 ML VIAL ONE; +PROTONIX20 MG PO; -SODIUM CHLORIDE 0.9% 50ML 50 ML ONE
[2019-12-16 10:30] VITALS: BP 121/70
== END | disposition home or self-care (01) ==
LOC: OR 06:40
PROVIDERS: ATTEND Surgery
DX: K21.00 Gastro-esophageal reflux disease with esophagitis, without bleeding (principal); D12.2 Benign neoplasm of ascending colon; D12.3 Benign neoplasm of transverse colon; D12.8 Benign neoplasm of rectum; K57.30 Diverticulosis of large intestine without perforation or abscess without bleeding; Z98.0 Intestinal bypass and anastomosis status; Z01.810 Encounter for preprocedural cardiovascular examination; Z01.812 Encounter for preprocedural laboratory examination; Z11.59 Encounter for screening for other viral diseases
CPT/HCPCS: 36415; 43239; 45380; 45384; 45385; 80048; 85025; 88305; 93005; J2001; J2704; U0002

== ENCOUNTER → 2020-01-20 | Outpatient (CLI) | payer OTHER ==
[~2020-01-20] MED LIST changes: -LIDOCAINE HCL 2% LOCAL INJ 5 ML SDV VIAL INJ ONE; -PROPOFOL IV EMULSION 10 MG/ML 20 ML VIAL ONE
== END ==
LOC: MAMMO 12:03
PROVIDERS: ATTEND Obstetrics & Gynecology
DX: Z12.31 Encounter for screening mammogram for malignant neoplasm of breast (principal)
CPT/HCPCS: 77067

== ENCOUNTER → 2020-02-16 | Outpatient (CLI) | payer OTHER ==
[~2020-02-16] MED LIST changes: +IOPAMIDOL 370 MG/ML 200 ML INFUS..BTL INJ ONE; +SODIUM CHLORIDE 0.9% 50ML 50 ML ONE
== END ==
LOC: CT 08:08
PROVIDERS: ATTEND Surgery
DX: C15.9 Malignant neoplasm of esophagus, unspecified (principal)
CPT/HCPCS: 71260; 74177; Q9967

== ENCOUNTER → 2020-08-23 | Outpatient (CLI) | payer OTHER | LOC: CT 08:08 | PROVIDERS: ATTEND Surgery | DX: C15.9 Malignant neoplasm of esophagus, unspecified (principal) | CPT/HCPCS: 71260; 74177; Q9967 ==

== ENCOUNTER → 2020-12-02 | Day surgery (SDC) | payer OTHER ==
[2020-11-30 08:00] LABS: BASOPHILS # (AUTO) 0.1 (0.0-0.1); BASOPHILS % 0.9 % (0.0-1.0); EOSINOPHILS # (AUTO) 0.4 (0.0-0.4); EOSINOPHILS % 6.2 % (0.0-6.0); HEMATOCRIT 39.1 % (34.2-44.1); HEMOGLOBIN 12.4 g/dL (12.0-16.0); LYMPHOCYTES # (AUTO) 2.7 (1.0-3.2); LYMPHOCYTES % 41.8 % (18.0-39.1); MEAN CORPUSCULAR HEMOGLOBIN 28.9 pg (28-32); MEAN CORPUSCULAR HGB CONC 31.7 g/dL (31-35); MEAN CORPUSCULAR VOLUME 91.1 fL (81-99); MONOCYTES # (AUTO) 0.5 (0.2-0.8); MONOCYTES % 7.7 % (4.4-11.3); NEUTROPHILS # (AUTO) 2.7 (2.1-6.9); NEUTROPHILS % 43.2 % (38.7-80.0); PLATELET COUNT 307 x10e3/uL (140-360); RED BLOOD COUNT 4.29 x10e6/uL (3.6-5.1); RED CELL DISTRIBUTION WIDTH 13.4 % (11.7-14.4)
[2020-11-30 08:18] LABS: ALBUMIN/GLOBULIN RATIO 1.2 (0.8-2.0); ANION GAP 13.7 mmol/L (8-16); CALCIUM 9.5 mg/dL (8.4-10.2); CREATININE, SERUM 0.64 mg/dL (0.57-1.11); POTASSIUM 3.7 mmol/L (3.5-5.1)
[~2020-12-02] MED LIST changes: -IOPAMIDOL 370 MG/ML 200 ML INFUS..BTL INJ ONE; -SODIUM CHLORIDE 0.9% 50ML 50 ML ONE; +TEMAZEPAM15 MG PO
[2020-12-02 09:35] VITALS: BP 100/66
== END | disposition home or self-care (01) ==
LOC: OR 07:09
PROVIDERS: ATTEND Surgery
DX: Z08 Encounter for follow-up examination after completed treatment for malignant neoplasm (principal); Z85.01 Personal history of malignant neoplasm of esophagus; K21.9 Gastro-esophageal reflux disease without esophagitis; Z90.49 Acquired absence of other specified parts of digestive tract; Z88.1 Allergy status to other antibiotic agents; Z88.0 Allergy status to penicillin; Z01.810 Encounter for preprocedural cardiovascular examination; Z01.812 Encounter for preprocedural laboratory examination; Z01.818 Encounter for other preprocedural examination; Z20.822 Contact with and (suspected) exposure to COVID-19; Z87.891 Personal history of nicotine dependence
CPT/HCPCS: 36415; 43235; 71046; 80053; 85025; 93005; U0002; 43239

== ENCOUNTER → 2021-02-16 | Outpatient (CLI) | payer BC ==
[~2021-02-16] MED LIST changes: +IOPAMIDOL 370 MG/ML 200 ML INFUS..BTL INJ ONE; +SODIUM CHLORIDE 0.9% 50ML 50 ML ONE
== END ==
LOC: CT 10:06
PROVIDERS: ATTEND Surgery
DX: C15.9 Malignant neoplasm of esophagus, unspecified (principal)
CPT/HCPCS: 71260; 74177; Q9967

== ENCOUNTER → 2021-02-16 | Outpatient (CLI) | payer BC ==
[~2021-02-16] MED LIST changes: -IOPAMIDOL 370 MG/ML 200 ML INFUS..BTL INJ ONE; -SODIUM CHLORIDE 0.9% 50ML 50 ML ONE
== END ==
LOC: MAMMO 11:44
PROVIDERS: ATTEND Obstetrics & Gynecology
DX: Z12.31 Encounter for screening mammogram for malignant neoplasm of breast (principal)
CPT/HCPCS: 77067

== ENCOUNTER 2021-07-23 09:43 | Emergency (ER) | payer BC ==
[~2021-07-23] VITALS: Ht 170.2 cm; Wt 86.2 kg
[2021-07-23] MEDS ORDERED: BEBTELOVIMAB 175 MG INJ IV ONE (10:00)
== END 2021-07-23 10:16 | disposition home or self-care (01) ==
LOC: ER 09:50
DX: U07.1 COVID-19 (principal); R51.9 Headache, unspecified; K21.9 Gastro-esophageal reflux disease without esophagitis; Z85.01 Personal history of malignant neoplasm of esophagus
CPT/HCPCS: 99283

== ENCOUNTER → 2021-08-09 | Outpatient (CLI) | payer BC ==
[~2021-08-09] MED LIST changes: +IOPAMIDOL 370 MG/ML 100 ML INFUS..BTL INJ ONE
[2021-08-09 11:08] LABS: ALANINE AMINOTRANSFERASE 15 IU/L (0-55); ALBUMIN 3.6 g/dL (3.5-5.0); ALBUMIN/GLOBULIN RATIO 0.9 (0.8-2.0); ALKALINE PHOSPHATASE 108 IU/L (40-150); ANION GAP 15.9 mmol/L (8-16); BLOOD UREA NITROGEN < 5 mg/dL (7-26); CALCIUM 8.9 mg/dL (8.4-10.2); CARBON DIOXIDE 25 mmol/L (22-29); CHLORIDE 101 mmol/L (98-107); CREATININE, SERUM 0.67 mg/dL (0.57-1.11); GLUCOSE 96 mg/dL (74-118); POTASSIUM 3.9 mmol/L (3.5-5.1); SODIUM 138 mmol/L (136-145)
[2021-08-09 11:12] LABS: BUN/CREATININE RATIO 7 (6-25)
[2021-08-09 11:17] LABS: BASOPHILS % 0.6 % (0.0-1.0); EOSINOPHILS # (AUTO) 0.2 (0.0-0.4); EOSINOPHILS % 3.4 % (0.0-6.0); HEMOGLOBIN 11.5 g/dL (12.0-16.0); LYMPHOCYTES # (AUTO) 1.2 (1.0-3.2); LYMPHOCYTES % 24.8 % (18.0-39.1); MEAN CORPUSCULAR HEMOGLOBIN 27.6 pg (28-32); MEAN CORPUSCULAR HGB CONC 30.3 g/dL (31-35); MEAN CORPUSCULAR VOLUME 91.1 fL (81-99); MONOCYTES # (AUTO) 0.5 (0.2-0.8); MONOCYTES % 9.2 % (4.4-11.3); NEUTROPHILS # (AUTO) 3.1 (2.1-6.9); NEUTROPHILS % 61.8 % (38.7-80.0); PLATELET COUNT 302 x10e3/uL (140-360); RED BLOOD COUNT 4.17 x10e6/uL (3.6-5.1); RED CELL DISTRIBUTION WIDTH 13.6 % (11.7-14.4)
== END ==
LOC: CT 08:43
PROVIDERS: ATTEND Surgery
DX: C15.5 Malignant neoplasm of lower third of esophagus (principal)
CPT/HCPCS: 36415; 71260; 74177; 80053; 85025; Q9967

== ENCOUNTER → 2021-12-29 | Day surgery (SDC) | payer BC ==
[2021-12-26 14:33] LABS: BASOPHILS # (AUTO) 0.1 (0.0-0.1); BASOPHILS % 0.9 % (0.0-1.0); EOSINOPHILS # (AUTO) 0.2 (0.0-0.4); EOSINOPHILS % 4.3 % (0.0-6.0); HEMATOCRIT 35.7 % (34.2-44.1); HEMOGLOBIN 10.7 g/dL (12.0-16.0); LYMPHOCYTES % 36.2 % (18.0-39.1); MEAN CORPUSCULAR HEMOGLOBIN 26.6 pg (28-32); MEAN CORPUSCULAR VOLUME 88.8 fL (81-99); MONOCYTES # (AUTO) 0.5 (0.2-0.8); MONOCYTES % 8.7 % (4.4-11.3); NEUTROPHILS # (AUTO) 2.8 (2.1-6.9); NEUTROPHILS % 49.9 % (38.7-80.0); PLATELET COUNT 315 x10e3/uL (140-360); RED BLOOD COUNT 4.02 x10e6/uL (3.6-5.1); RED CELL DISTRIBUTION WIDTH 13.8 % (11.7-14.4)
[2021-12-26 14:57] LABS: ALBUMIN/GLOBULIN RATIO 1.2 (0.8-2.0); ANION GAP 12.6 mmol/L (8-16); CALCIUM 9.2 mg/dL (8.4-10.2); CREATININE, SERUM 0.69 mg/dL (0.57-1.11); POTASSIUM 3.6 mmol/L (3.5-5.1)
[~2021-12-29] MED LIST changes: -IOPAMIDOL 370 MG/ML 100 ML INFUS..BTL INJ ONE; +LIDOCAINE HCL 2% LOCAL INJ 5 ML SDV VIAL INJ ONE; +MIDAZOLAM HCL 2 MG/2 ML VIAL ONE; +PROPOFOL IV EMULSION 10 MG/ML 20 ML VIAL ONE
[2021-12-29 10:20] VITALS: BP 135/70
== END | disposition home or self-care (01) ==
LOC: OR 07:38
PROVIDERS: ATTEND Surgery
DX: Z12.11 Encounter for screening for malignant neoplasm of colon (principal); Z85.01 Personal history of malignant neoplasm of esophagus; K57.30 Diverticulosis of large intestine without perforation or abscess without bleeding; Z90.49 Acquired absence of other specified parts of digestive tract; Z88.1 Allergy status to other antibiotic agents; Z88.0 Allergy status to penicillin; Z01.810 Encounter for preprocedural cardiovascular examination; Z01.812 Encounter for preprocedural laboratory examination; Z01.818 Encounter for other preprocedural examination
CPT/HCPCS: 36415; 43235; 45378; 71046; 80053; 85025; 93005; J2001; J2250; J2704; 43239

== ENCOUNTER → 2022-08-06 | Outpatient (CLI) | payer BC ==
[~2022-08-06] MED LIST changes: +IOPAMIDOL 370 MG/ML 100 ML INFUS..BTL INJ ONE; -LIDOCAINE HCL 2% LOCAL INJ 5 ML SDV VIAL INJ ONE; -MIDAZOLAM HCL 2 MG/2 ML VIAL ONE; -PROPOFOL IV EMULSION 10 MG/ML 20 ML VIAL ONE
[2022-08-06 09:49] LABS: CREATININE, SERUM 0.67 mg/dL (0.57-1.11)
== END ==
LOC: CT 08:13
PROVIDERS: ATTEND Nurse Practitioner Family
DX: C15.9 Malignant neoplasm of esophagus, unspecified (principal)
CPT/HCPCS: 36415; 71260; 74177; 82565; 84520; Q9967

== ENCOUNTER → 2023-01-18 | Day surgery (SDC) | payer BC ==
[2023-01-15 10:29] LABS: BASOPHILS % 0.5 % (0.0-1.0); EOSINOPHILS # (AUTO) 0.1 (0.0-0.4); EOSINOPHILS % 2.4 % (0.0-6.0); HEMATOCRIT 34.3 % (34.2-44.1); HEMOGLOBIN 10.1 g/dL (12.0-16.0); LYMPHOCYTES # (AUTO) 1.7 (1.0-3.2); LYMPHOCYTES % 30.7 % (18.0-39.1); MEAN CORPUSCULAR HEMOGLOBIN 23.7 pg (28-32); MEAN CORPUSCULAR HGB CONC 29.4 g/dL (31-35); MEAN CORPUSCULAR VOLUME 80.3 fL (81-99); MONOCYTES # (AUTO) 0.5 (0.2-0.8); MONOCYTES % 9.8 % (4.4-11.3); NEUTROPHILS # (AUTO) 3.1 (2.1-6.9); NEUTROPHILS % 56.4 % (38.7-80.0); PLATELET COUNT 318 x10e3/uL (140-360); RED BLOOD COUNT 4.27 x10e6/uL (3.6-5.1); RED CELL DISTRIBUTION WIDTH 15.2 % (11.7-14.4); WHITE BLOOD COUNT 5.51 x10e3/uL (4.8-10.8)
[2023-01-15 10:47] LABS: ALBUMIN 4.1 g/dL (3.5-5.0); ALBUMIN/GLOBULIN RATIO 1.2 (0.8-2.0); ANION GAP 12.6 mmol/L (8-16); BILIRUBIN,TOTAL 0.6 mg/dL (0.2-1.2); CALCIUM 9.5 mg/dL (8.4-10.2); CREATININE, SERUM 0.69 mg/dL (0.57-1.11); POTASSIUM 3.6 mmol/L (3.5-5.1); TOTAL PROTEIN 7.6 g/dL (6.5-8.1)
[~2023-01-18] MED LIST changes: +DEXAMETHASONE SOD PHOS INJ 4 MG/ML SDV ONE; -IOPAMIDOL 370 MG/ML 100 ML INFUS..BTL INJ ONE; +LACTATED RINGER'S 1,000 ML ONE; +LIDOCAINE HCL 2% LOCAL INJ 5 ML SDV VIAL INJ ONE; +ONDANSETRON HCL INJ 2MG/ML 2ML 2 MG/ML VIAL ONE; +PROPOFOL IV EMULSION 10 MG/ML 20 ML VIAL ONE
[2023-01-18 09:18] VITALS: TEMP 97.8
[2023-01-18 09:30] VITALS: BP 121/88; PULSE 61; RESP 16; O2SAT 99
== END | disposition home or self-care (01) ==
LOC: OR 06:15
PROVIDERS: ATTEND Surgery
DX: Z08 Encounter for follow-up examination after completed treatment for malignant neoplasm (principal); Z85.01 Personal history of malignant neoplasm of esophagus; Z90.49 Acquired absence of other specified parts of digestive tract; D64.9 Anemia, unspecified; K21.9 Gastro-esophageal reflux disease without esophagitis; Z87.11 Personal history of peptic ulcer disease; Z01.810 Encounter for preprocedural cardiovascular examination; Z01.812 Encounter for preprocedural laboratory examination; Z01.818 Encounter for other preprocedural examination; Z88.0 Allergy status to penicillin; Z79.899 Other long term (current) drug therapy
CPT/HCPCS: 36415; 43239; 71046; 80053; 85025; 93005; J1100; J2001; J2405

== ENCOUNTER → 2023-09-13 | Outpatient (REF) | payer BC ==
[~2023-09-13] MED LIST changes: -DEXAMETHASONE SOD PHOS INJ 4 MG/ML SDV ONE; -LACTATED RINGER'S 1,000 ML ONE; -LIDOCAINE HCL 2% LOCAL INJ 5 ML SDV VIAL INJ ONE; +METHOCARBAMOL500 MG PO; -ONDANSETRON HCL INJ 2MG/ML 2ML 2 MG/ML VIAL ONE; -PROPOFOL IV EMULSION 10 MG/ML 20 ML VIAL ONE
[2023-09-13 13:41] LABS: BASOPHILS % 0.5 % (0.0-1.0); EOSINOPHILS # (AUTO) 0.1 (0.0-0.4); EOSINOPHILS % 2.2 % (0.0-6.0); HEMOGLOBIN 9.7 g/dL (12.0-16.0); LYMPHOCYTES # (AUTO) 1.8 (1.0-3.2); LYMPHOCYTES % 32.5 % (18.0-39.1); MEAN CORPUSCULAR HEMOGLOBIN 23.1 pg (28-32); MEAN CORPUSCULAR HGB CONC 29.4 g/dL (31-35); MEAN CORPUSCULAR VOLUME 78.6 fL (81-99); MONOCYTES # (AUTO) 0.4 (0.2-0.8); MONOCYTES % 7.7 % (4.4-11.3); NEUTROPHILS # (AUTO) 3.1 (2.1-6.9); NEUTROPHILS % 56.7 % (38.7-80.0); PLATELET COUNT 318 x10e3/uL (140-360); WHITE BLOOD COUNT 5.48 x10e3/uL (4.8-10.8)
[2023-09-13 14:05] LABS: ALBUMIN 4.1 g/dL (3.5-5.0); ANION GAP 14.8 mmol/L (8-16); BILIRUBIN,TOTAL 0.4 mg/dL (0.2-1.2); CALCIUM 9.7 mg/dL (8.4-10.2); CREATININE, SERUM 0.74 mg/dL (0.57-1.11); POTASSIUM 3.8 mmol/L (3.5-5.1); TOTAL PROTEIN 8.1 g/dL (6.5-8.1)
[2023-09-13 14:25] LABS: FERRITIN 5.94 ng/mL (4.63-204.00)
[2023-09-13 15:06] LABS: FOLATE 8.8 ng/mL (7.0-15.4)
== END ==
LOC: LAB 12:46
PROVIDERS: ATTEND Surgery
DX: Z85.01 Personal history of malignant neoplasm of esophagus (principal)
CPT/HCPCS: 36415; 80053; 82607; 82728; 82746; 85025; 85045

== ENCOUNTER → 2023-11-13 | Outpatient (REF) | payer BC ==
[2023-11-13 09:42] LABS: BASOPHILS % 0.4 % (0.0-1.0); EOSINOPHILS # (AUTO) 0.2 (0.0-0.4); HEMATOCRIT 34.5 % (34.2-44.1); HEMOGLOBIN 9.5 g/dL (12.0-16.0); LYMPHOCYTES # (AUTO) 1.4 (1.0-3.2); LYMPHOCYTES % 28.4 % (18.0-39.1); MEAN CORPUSCULAR HEMOGLOBIN 22.3 pg (28-32); MEAN CORPUSCULAR HGB CONC 27.5 g/dL (31-35); MONOCYTES # (AUTO) 0.5 (0.2-0.8); MONOCYTES % 9.5 % (4.4-11.3); NEUTROPHILS # (AUTO) 2.7 (2.1-6.9); NEUTROPHILS % 57.5 % (38.7-80.0); PLATELET COUNT 334 x10e3/uL (140-360); RED BLOOD COUNT 4.26 x10e6/uL (3.6-5.1); WHITE BLOOD COUNT 4.75 x10e3/uL (4.8-10.8)
[2023-11-13 10:08] LABS: ALBUMIN 3.9 g/dL (3.5-5.0); ANION GAP 13.4 mmol/L (8-16); BILIRUBIN,TOTAL 0.4 mg/dL (0.2-1.2); CALCIUM 9.7 mg/dL (8.4-10.2); CREATININE, SERUM 0.73 mg/dL (0.57-1.11); TOTAL PROTEIN 7.8 g/dL (6.5-8.1)
[2023-11-13 10:09] LABS: POTASSIUM 3.4 mmol/L (3.5-5.1)
[2023-11-13 10:40] LABS: ERYTHROCYTE SEDIMENTATION RATE 33 mm/hr (0-20)
== END ==
LOC: LAB 12:57
PROVIDERS: ATTEND Surgery
DX: D64.9 Anemia, unspecified (principal)
CPT/HCPCS: 36415; 80053; 82607; 83540; 85025; 85651

== ENCOUNTER → 2023-12-19 | Outpatient (REF) | payer BC | LOC: MAMMO 09:08 | PROVIDERS: ATTEND Surgery | DX: Z12.31 Encounter for screening mammogram for malignant neoplasm of breast (principal) | CPT/HCPCS: 77067 ==

== ENCOUNTER → 2024-01-23 | Day surgery (SDC) | payer BC ==
[2024-01-17 10:34] LABS: BASOPHILS % 0.4 % (0.0-1.0); EOSINOPHILS # (AUTO) 0.2 (0.0-0.4); EOSINOPHILS % 3.6 % (0.0-6.0); HEMATOCRIT 33.4 % (34.2-44.1); HEMOGLOBIN 9.3 g/dL (12.0-16.0); LYMPHOCYTES # (AUTO) 1.4 (1.0-3.2); LYMPHOCYTES % 30.4 % (18.0-39.1); MEAN CORPUSCULAR HEMOGLOBIN 22.4 pg (28-32); MEAN CORPUSCULAR HGB CONC 27.8 g/dL (31-35); MEAN CORPUSCULAR VOLUME 80.3 fL (81-99); MONOCYTES # (AUTO) 0.5 (0.2-0.8); MONOCYTES % 10.9 % (4.4-11.3); NEUTROPHILS # (AUTO) 2.4 (2.1-6.9); NEUTROPHILS % 54.5 % (38.7-80.0); PLATELET COUNT 331 x10e3/uL (140-360); RED BLOOD COUNT 4.16 x10e6/uL (3.6-5.1); RED CELL DISTRIBUTION WIDTH 16.4 % (11.7-14.4); WHITE BLOOD COUNT 4.48 x10e3/uL (4.8-10.8)
[2024-01-17 11:17] LABS: ALBUMIN 3.7 g/dL (3.5-5.0); ALBUMIN/GLOBULIN RATIO 0.9 (0.8-2.0); ANION GAP 13.1 mmol/L (8-16); BILIRUBIN,TOTAL 0.4 mg/dL (0.2-1.2); CALCIUM 9.8 mg/dL (8.4-10.2); CREATININE, SERUM 0.68 mg/dL (0.57-1.11); POTASSIUM 4.1 mmol/L (3.5-5.1); TOTAL PROTEIN 7.6 g/dL (6.5-8.1)
[~2024-01-23] MED LIST changes: +LIDOCAINE HCL 2% LOCAL INJ 5 ML SDV VIAL INJ ONE; +PROPOFOL IV EMULSION 10 MG/ML 20 ML VIAL ONE
[2024-01-23] MEDS: LACTATED RINGER'S 1,000 ML ONE (09:04)
[2024-01-23 09:39] VITALS: TEMP 97.6
[2024-01-23 10:10] VITALS: BP 115/70; PULSE 63; RESP 16; O2SAT 100
== END | disposition home or self-care (01) ==
LOC: OR 07:08
PROVIDERS: ATTEND Surgery
DX: Z08 Encounter for follow-up examination after completed treatment for malignant neoplasm (principal); Z85.01 Personal history of malignant neoplasm of esophagus; Z98.0 Intestinal bypass and anastomosis status; K21.9 Gastro-esophageal reflux disease without esophagitis; Z88.1 Allergy status to other antibiotic agents; Z88.0 Allergy status to penicillin; Z01.810 Encounter for preprocedural cardiovascular examination; Z01.812 Encounter for preprocedural laboratory examination; Z01.818 Encounter for other preprocedural examination; Z79.899 Other long term (current) drug therapy
CPT/HCPCS: 36415; 43235; 71046; 80053; 85025; 93005; J2003; J2704; J7121; 43239

== ENCOUNTER → 2024-04-02 | Outpatient (REF) | payer BC ==
[~2024-04-02] MED LIST changes: -LIDOCAINE HCL 2% LOCAL INJ 5 ML SDV VIAL INJ ONE; -PROPOFOL IV EMULSION 10 MG/ML 20 ML VIAL ONE
[2024-04-02 14:09] LABS: BASOPHILS % 0.7 % (0.0-1.0); EOSINOPHILS # (AUTO) 0.2 (0.0-0.4); EOSINOPHILS % 4.3 % (0.0-6.0); HEMATOCRIT 39.6 % (34.2-44.1); HEMOGLOBIN 13.5 g/dL (12.0-16.0); LYMPHOCYTES # (AUTO) 1.6 (1.0-3.2); LYMPHOCYTES % 35.3 % (18.0-39.1); MEAN CORPUSCULAR HEMOGLOBIN 30.3 pg (28-32); MEAN CORPUSCULAR HGB CONC 34.1 g/dL (31-35); MONOCYTES # (AUTO) 0.4 (0.2-0.8); MONOCYTES % 7.8 % (4.4-11.3); NEUTROPHILS # (AUTO) 2.3 (2.1-6.9); NEUTROPHILS % 51.7 % (38.7-80.0); PLATELET COUNT 243 x10e3/uL (140-360); RED BLOOD COUNT 4.45 x10e6/uL (3.6-5.1); RED CELL DISTRIBUTION WIDTH 17.9 % (11.7-14.4); RETICULOCYTE % 1.1 % (0.8-2.2); WHITE BLOOD COUNT 4.47 x10e3/uL (4.8-10.8)
[2024-04-02 14:53] LABS: ALBUMIN 4.1 g/dL (3.5-5.0); ALBUMIN/GLOBULIN RATIO 1.3 (0.8-2.0); ANION GAP 13.2 mmol/L (8-16); BILIRUBIN,TOTAL 0.5 mg/dL (0.2-1.2); CALCIUM 9.6 mg/dL (8.4-10.2); CREATININE, SERUM 0.72 mg/dL (0.57-1.11); POTASSIUM 4.2 mmol/L (3.5-5.1); TOTAL PROTEIN 7.3 g/dL (6.5-8.1)
[2024-04-02 15:23] LABS: FOLATE 4.8 ng/mL (7.0-15.4)
== END ==
LOC: LAB 13:53
PROVIDERS: ATTEND Surgery
DX: D64.9 Anemia, unspecified (principal)
CPT/HCPCS: 36415; 80053; 82607; 82746; 83540; 84466; 85025; 85045

== ENCOUNTER → 2024-09-25 | Outpatient (REF) | payer BC ==
[2024-09-25 14:45] LABS: BASOPHILS % 0.5 % (0.0-1.0); EOSINOPHILS % 2.9 % (0.0-6.0); LYMPHOCYTES % 27.6 % (18.0-39.1); MONOCYTES % 6.6 % (4.4-11.3); NEUTROPHILS % 62.2 % (38.7-80.0); RED CELL DISTRIBUTION WIDTH 12.2 % (11.7-14.4)
[2024-09-25 15:18] LABS: EST GLOMERULAR FILTRATION RATE 92.0 ML/MIN (>=60)
[2024-09-26 12:52] LABS: FOLATE (REF LAB) 5.9 ng/mL (>3.0)
== END ==
LOC: RAD 12:00
PROVIDERS: ATTEND Surgery
DX: D64.9 Anemia, unspecified (principal)
CPT/HCPCS: 36415; 80053; 82378; 82607; 82746; 83540; 85025; 86140